=== PATIENT | male | born 1945 | race African-American/Black ===

== ENCOUNTER 2016-07-18 15:33 | Emergency (ER) | payer MEDICARE, BC ==
[2016-07-18] MEDS ORDERED: NS 1,000 ML IV ONE ×2 (15:47→15:54)
[2016-07-18] MEDS ORDERED: ATROPINE 1 MG/10 ML PFS IV ONE (15:48)
--- NOTE | 2016-07-18 15:57 | EDPRACDOC ---
- General Information Stated Complaint: SYNCOPE Time Seen by Provider: 07/18/16 15:43 Home Medications: Home Medications Felodipine [Felodipine ER] 5 mg PO QHS 06/23/15 Levothyroxine [Synthroid, Levoxyl] 112 mcg PO DAILY 06/23/15 Metformin HCl 500 mg PO BID 06/23/15 Lisinopril 40 mg PO QHS 12/08/15 Repaglinide [Prandin] 0.5 mg PO TID 07/18/16 Rosuvastatin Calcium [Crestor] 10 mg PO QHS 07/18/16 Allergies/Adverse Reactions: Allergies Allergy/AdvReac Type Severity Reaction Status Date / Time No Known Allergies Allergy Verified 12/09/15 07:24 - History of Present Illness HPI: PT PRESENTS WITH HYPOTENSION AND BRADYCARDIA WITH APPARENT LARGE VOLUME LOWER GI BLEED. LARGE BLOODY BM IN ER. ED Past Medical History - Patient Medical History Neurological History: Reports: Cerebrovascular Accident (1995 NO RESIDUAL DEFICITS) Cardiac History: Reports: Hypertension Respiratory History: Musculoskeletal History: Systemic History: Reports: Hypothyroidism Surgical History: - Family Medical History Reports: Diabetes (SISTER, PARENT?). Denies: Hypertension, Cancer, Cardiac Disorders - Social Medical History Smoking Status: Heavy tobacco smoker (5 or more cigarettes/day or daily pipe/ cigar) EDM Review of Systems - Review of Systems ROS Unobtainable: Yes Hx Limited due to age/level of understanding of patient ( PT ACUTELY ILL AND DECREASED RESPONSIVENESS.) - Physical Exam Constitutional: Alert (WITH SLOWED MENTATION), Distress. negative: Well appearing Last recorded Vital Signs: Oxygen Pulse Oxygen Saturation O2 Device Oxygen Flow Rate Fraction of Inspired Oxygen ( FIO2) - HEENT Head: negative: Deformity, Laceration Eye Exam: Pale Conjunctiva. negative: Conjunctival Injection Nose: negative: Congestion, Discharge Neck: negative: Limited ROM - Respiratory/Cardiovascular Respiratory: Normal - CTA. negative: Accessory Muscle Use, Diminished, Tachypnea Cardiovascular: Bradycardia. negative: Irregular - GI Auscultation: Normal Palpation: Normal Tenderness: Non tender - Musculoskeletal Extremities: Radial Pulse (PALPABLE) - Integumentary Skin: Cool, Dry, Pale - Neurologic Mood Description: Flat ED Procedures - Central Line Informed of risks, benefits and alternatives described.: Yes Central Line Informed Consent Signed: Verbal Indication: Hypotension, Volume Resuscitation, Medication Administration Line Procedure: Sterile drapes applied, Sterile dressing applied, Betadine prep Equipment used during procedure: Hat and Mask Line Lumen: triple Central Line Postion: femoral (R) Anesthesia: Lidocaine cc's of anesthesia: 4 Line Position approached and secured by standard fashion: sutured, good blood return Complications: none - Re-evaluation Re-evaluation 1 Re-evaluation Time: 15:58 HEART RATE IMMEDIATELY IMPROVED WITH ATROPINE. MANUAL BP WAS 90/60 UPON ARRIVAL WITH BRADYCARDIA. LARGE BM WAS HEME POSITIVE W/ MIXED STOOL AND RED BLOOD. Re-evaluation 2 Re-evaluation Time: 18:58 PT MUCH MORE ALERT AND RESPONSIVE. RECENTLY TREATED AT [facility] FOR GI BLEED A FEW WEEKS AGO. Re-evaluation 3 Re-evaluation Time: 21:00 PT ACCEPTED FOR TRANSFER TO [facility] [facility]. AWAITING ROOM ASSIGNMENT. - Results 07/18/16 16:17 07/18/16 16:17 - EKG EKG #1 EKG Time: 15:42 -: Yes EKG interpreted by me Rate: bpm: 36 Rhythm: SB ST: Nonsp ED Critical Care Note - Critical Care Note Total Time (mins): 45 Comments: Due to the presence of and / or the risk of deterioration, my attendance to this patient required critical care time, including assessment/reassessment, documentation, ordering and interpreting ancillary studies, discussion with ED staff and consultants,patient and family, and excludes time spent on separately billable procedures. - Departure Yes I personally saw and evaluated the patient. Disposition: Trans. to Other Hospital Condition: Stable Final Diagnosis: Acute GI bleeding, Blood loss anemia Referrals: Maverick Pascual MD [Primary Care Provider] - One Week Decision to Transfer Time: 21:00 (DR. URBAN IS ACCEPTING HOSPITALIST)
[2016-07-18] MEDS ORDERED: ONDANSETRON HCL 4 MG/2 ML VIAL IV STA (16:01)
[2016-07-18 16:21] VITALS: BMI 24.3
[2016-07-18 16:34] LABS: RBC/URINE 0-2 (0-2)
[2016-07-18 16:42] LABS: LEUKOCYTES/URINE NEG (NEGATIVE); NITRITE/URINE NEG (NEGATIVE); URINE OCCULT BLOOD NEG (NEG/TRACE)
[2016-07-18 16:53] LABS: BLOOD UREA NITROGEN 32 MG/DL (9-20); CALC CORRECTED 9.7 MG/DL (8.4-10.2); CALCIUM 8.9 MG/DL (8.4-10.2); CALCULATED OSMOLALITY 297 MOs/Kg (270-290); CHLORIDE 112 mEq/L (98-107); CPK TOTAL WITH POSSIBLE MB 65 IU/L (55-170); GLUCOSE 269 MG/DL (70-99); SODIUM LEVEL 146 mEq/L (137-146); TOTAL PROTEIN 6.2 G/DL (6.3-8.2)
[2016-07-18 17:13] LABS: MPV 8.8 fL (7.4-10.4)
--- NOTE | 2016-07-18 17:18 | DIRPT ---
CLINICAL DATA: Weakness, hypotension, bradycardia, lower GI bleed with large bloody bowel movement in emergency room EXAM: PORTABLE CHEST 1 VIEW COMPARISON: Portable exam 1704 hours without priors for comparison. FINDINGS: Normal heart size, mediastinal contours, and pulmonary vascularity. Lungs clear. No pleural effusion or pneumothorax. Bones unremarkable. IMPRESSION: No acute abnormalities. Electronically Signed By: Nic Cardenas M.D. On: 07/18/2016 17:15
[2016-07-18 17:29] LABS: SEG NEUTROPHIL 86 % (45-76)
[2016-07-18 17:48] VITALS: TEMP 96.6
[2016-07-18 17:52] LABS: PARTIAL THROMB. TIME 21.5 SEC (22-35); PT-INR 1.1
[2016-07-18] MEDS ORDERED: Pharmacy Review for Metformin - IV Contrast Given SCH (18:00)
[2016-07-18] MEDS ORDERED: PIPERACILLIN AND TAZOBACTAM 4.5 GM in D5W 100 ML IV ONE (18:50)
[2016-07-18] MEDS ORDERED: Metronidazole 500 mg/100 ml 500 MG/100 ML RTU IV ONE (18:50)
--- NOTE | 2016-07-18 19:15 | DIRPT ---
CLINICAL DATA: 71-year-old male with leukocytosis and GI and EXAM: CT ABDOMEN AND PELVIS WITH CONTRAST TECHNIQUE: Multidetector CT imaging of the abdomen and pelvis was performed using the standard protocol following bolus administration of intravenous contrast. CONTRAST: 70 mL Isovue 370 administered intravenously COMPARISON: None FINDINGS: Lower Chest: The visualized lower lungs are clear. Visualized cardiac structures within normal limits for size. No pericardial effusion. Fluid noted in the visualized distal thoracic esophagus. No evidence of esophageal wall thickening. Abdomen: Unremarkable CT appearance of the stomach, duodenum, spleen, adrenal glands and pancreas. Normal hepatic contour and morphology. No discrete hepatic lesion. Gallbladder is unremarkable. No intra or extrahepatic biliary ductal dilatation. No evidence of hydronephrosis or nephrolithiasis. No enhancing renal mass. Sub cm low-attenuation lesions in the kidneys bilaterally are too small for accurate characterization but are statistically highly likely benign cysts. The largest measures 7 mm in the lower pole right kidney. Diffuse submucosal edema involving the distal transverse colon, descending and sigmoid colon. There is associated hyper enhancement of the mucosa. No evidence of active extravasation. Normal cecum, ascending and proximal transverse colon. No evidence of bowel obstruction. The small bowel is normal. No free fluid or suspicious adenopathy. Pelvis: Chamberlain catheter in the largely decompressed bladder. Unremarkable prostate gland. Bones/Soft Tissues: No acute fracture or aggressive appearing lytic or blastic osseous lesion. Stellate sclerotic focus in the left iliac bone adjacent to the sacroiliac joint likely represents a benign bone island. Probable multiple vertebral body hemangiomas. Vascular: Right femoral venous catheter. Catheter tip terminates in the external iliac vein. Mild scattered atherosclerotic vascular calcifications without significant appearing stenosis. IMPRESSION: 1. Long segment submucosal edema and hyper enhancement of the colonic mucosa beginning in the distal third of the transverse colon and extending into the rectum. Differential considerations include both infectious and inflammatory colitis. Ischemic colitis is considered somewhat less likely given the relative absence of significant atherosclerotic plaque or stenosis. 2. Right femoral venous catheter the tip of which terminates in the right external iliac vein appears 3. Fluid within the esophagus suggests possible reflux. 4. Additional ancillary findings above. Electronically Signed By: Ghanshyam Wilks M.D. On: 07/18/2016 19:12
[2016-07-18 22:15] VITALS: BP 180/73; PULSE 86
== END 2016-07-18 22:13 | disposition short-term general hospital (02) ==
LOC: ED 15:33
DX: K92.2 Gastrointestinal hemorrhage, unspecified (principal); D50.0 Iron deficiency anemia secondary to blood loss (chronic); I10 Essential (primary) hypertension; E03.9 Hypothyroidism, unspecified; F17.200 Nicotine dependence, unspecified, uncomplicated; Z79.899 Other long term (current) drug therapy
CPT/HCPCS: 36415; 36556; 71010; 74177; 80053; 81001; 82550; 83605; 83690; 84484; 85007; 85027; 85610; 85730; 86850; 86900; 86901; 87040; 87086; 87493; 93005; 96361; 96365; 96375; 99291; A9698; J0461; J2405; J2543; J3490; J7060; 99284